=== PATIENT | male | born 1985 | race Caucasian/White ===

== ENCOUNTER 2016-07-16 15:39 | Emergency (ER) | payer OTHER ==
--- NOTE | ~2016-07-16 | ER ---
PATIENT'S NAME: EMMANUEL CAMARILLO [facility] AGE: 31 Y [address] ROOM: [place] [address] LOCATION: [facility] ADMIT DATE: 07/16/2016 ER/Outpatient Report DISCHARGE DATE: FAMILY PHYSICIAN: PHYSICIAN, NO ATTENDING PHYSICIAN: Yisel Jon Time of Arrival: 1539 hours. Time of Evaluation: 1555 hours. CHIEF COMPLAINT: Possible kidney stone. HISTORY OF PRESENT ILLNESS: This is a 31-year-old male, who presents to the ER. He states that he feels like he has a kidney stone. He states that he has had several in the past, and this feels similar to that pain. He states last night, he started having some pain in his left flank, and now, the pain has intensified and radiated into his stomach. The patient has not had any troubles with urination or bowel movements. He denies any other problems at this time. ALLERGIES: NO KNOWN ALLERGIES. MEDICATIONS: None. PAST MEDICAL HISTORY: Kidney stones. PAST SURGICAL HISTORY: Shoulder surgery, knee surgery, and eye surgery. SOCIAL HISTORY: Drinks alcohol socially. REVIEW OF SYSTEMS: All systems reviewed were negative with the exception of those discussed in the HPI. PHYSICAL EXAMINATION: VITAL SIGNS: Height 5 feet 8 inches stated, weight 138.3 kg taken, blood pressure is 124/62, pulse 79, respirations 16, temperature 97.4 degrees tympanically, saturations 96% on room air. Ventura Coma Score is 15. GENERAL: Alert, calm, well-developed male, in no obvious distress. LUNGS: Clear to auscultation bilaterally. PATIENT'S NAME: EMMANUEL CAMARILLO [facility] AGE: 31 Y [address] ROOM: [place] [address] LOCATION: [facility] ADMIT DATE: 07/16/2016 ER/Outpatient Report DISCHARGE DATE: FAMILY PHYSICIAN: PHYSICIAN, NO ATTENDING PHYSICIAN: Yisel Jon HEART: Regular rate and rhythm. ABDOMEN: Soft. He is nontender. He has good bowel sounds throughout. MUSCULOSKELETAL: He does have slight CVA tenderness on the left flank with palpation. He has full range of motion of all limbs. SKIN: Warm, dry, and intact. LABORATORY DATA AND X-RAYS: Labs were ordered but then canceled for his blood work. His urinalysis was done, and he does have 250 blood, no infection seen, no nitrites. We did do a CT scan per stone protocol, which does show a small stone measuring 1 to 2 mm in the bladder with a small amount of hydronephrosis. IMPRESSION: Left-sided kidney stone. ASSESSMENT AND PLAN: The patient's pain actually improved once he got here. When the patient voided here in the ER, he did pass his stone. We will send his stone for further analysis. The patient did not want any pain medication while he was here and did not want to take anything for home. Advised him to monitor his symptoms, continue to push fluids. We did give him a business card for Urology if needed, and he should follow up with his primary care physician as needed as well. The patient understands and agrees with care. MULUGETA CHU PA-C FOR MD CHELLY HARLEY/gonzales /[id number] d: t: 07/25/16 1613, OUTPATIENT REPORT
[2016-07-16 16:39] LABS: BILIRUBIN URINE NEGATIVE (NEGATIVE); BLOOD URINE 250 /UL (NEGATIVE); COLOR URINE YELLOW (YELLOW); GLUCOSE URINE NEGATIVE (NEGATIVE); KETONE URINE NEGATIVE (NEGATIVE); LEUKOCYTES URINE NEGATIVE /UL (NEGATIVE); NITRITE URINE NEGATIVE (NEGATIVE); PROTEIN URINE NEGATIVE (NEGATIVE); SPEC GRAVITY URINE 1.015 (1.003-1.035); TURBIDITY URINE CLEAR (CLEAR); UROBILINOGEN URINE NORMAL (NORMAL)
[2016-07-16 17:12] LABS: BACTERIA URINE NEGATIVE (NEGATIVE); EPITHELIAL URINE RARE #/HPF (NEGATIVE); RBC URINE 50-100 #/HPF (NEGATIVE); WBC URINE 0-2 #/HPF (NEGATIVE)
== END 2016-07-16 17:19 | disposition disaster alternative care site (69) ==
LOC: GMED 15:39
PROVIDERS: Physician Assistant Medical
DX: N13.2 Hydronephrosis with renal and ureteral calculous obstruction (principal); Z98.890 Other specified postprocedural states